=== PATIENT | male | born 1940 | race Caucasian/White ===

== ENCOUNTER → 2016-04-29 | Outpatient (CLI) | payer BC ==
[~2016-04-29] MED LIST: ATOR-54 PO; GABA300C19 PO; MULTTAB58 PO
[2016-04-29 11:12] LABS: BASO % 0.5 %; BASO ABS # 0.02 K/uL (0-0.2); COMPLETE YES; EOS % 1.4 %; HEMATOCRIT 42.8 % (42-52); IG% 0.2 %; LYMPH % 28.7 %; LYMPH ABS # 1.23 K/uL (1.2-3.4); MEAN CELL VOLUME 87.5 fL (80-100); MEAN CORPUSCULAR HEMOGLOBIN 29.2 pg (25-34); MEAN CORPUSCULAR HGB CONC 33.4 g/dl (32-36); MEAN PLATELET VOLUME 10.2 fL (7.4-10.4); MONO % 11.2 %; PLATELET COUNT 221 K/uL (130-400); RED BLOOD COUNT 4.89 M/uL (4.7-6.1); WHITE BLOOD COUNT 4.28 K/uL (4.8-10.8)
[2016-04-29 11:20] LABS: ESTIMATED AVERAGE GLUCOSE 134 mg/dl; HA1C FLAG Normal (Normal)
[2016-04-29 11:24] LABS: ALT/SGPT 46 U/L (12-78); BLOOD UREA NITROGEN 15 mg/dl (7-18); BUN/CREATININE RATIO 18.8 (10-20); CALCIUM 9.1 mg/dl (8.5-10.1); CARBON DIOXIDE 27 mmol/L (21-32); CHLORIDE 104 mmol/L (98-107); CHOLESTEROL 161 mg/dl (0-200); CREATININE 0.78 mg/dl (0.60-1.40); GLUCOSE 120 mg/dl (70-99); POTASSIUM 4.5 mmol/L (3.5-5.1); SODIUM 139 mmol/L (136-145)
[2016-04-29 11:34] LABS: ALB/GLOB RATIO 1.1 (0.9-2); ALKALINE PHOSPHATASE 65 U/L (45-117); AST/SGOT 24 U/L (15-37); CHOLESTEROL/HDL RATIO 3.5; HDL CHOLESTEROL 46 mg/dl; TRIGLYCERIDES 531 mg/dl (0-150)
--- NOTE | 2016-05-07 07:23 | CODING QUERY MEDICAL NECESSITY ---
SUPPORTING DIAGNOSIS NEEDED A supporting diagnosis is required for the test/procedure performed on this patient in order for us to be reimbursed by the patient's insurance. Please provide a supporting diagnosis for the following test/procedure listed below next to the test name along with your signature. *If there is no additional diagnosis for this patient that would support the following test/procedure please document that below next to the test/procedure. Test(s)/Procedure(s) that require a supporting diagnosis: * VITAMIN B-12 LEVEL DIAGNOSIS: * DOS: 04/29/16 Provider Signature: Date: Thank you Millie Peck Health Information Management Once completed, please kindly fax back to [phone] For questions please call [phone]
== END | disposition home or self-care (01) ==
LOC: C.LABBC 07:02
PROVIDERS: ATTEND Internal Medicine Cardiovascular Disease
DX: E11.9 Type 2 diabetes mellitus without complications (principal); G62.9 Polyneuropathy, unspecified; M19.90 Unspecified osteoarthritis, unspecified site; D64.9 Anemia, unspecified; E78.5 Hyperlipidemia, unspecified; M81.0 Age-related osteoporosis without current pathological fracture; I34.0 Nonrheumatic mitral (valve) insufficiency; R00.2 Palpitations; R06.02 Shortness of breath; R07.89 Other chest pain; I49.3 Ventricular premature depolarization

== ENCOUNTER → 2016-07-07 | Outpatient (CLI) | payer BC ==
[~2016-07-07] MED LIST changes: +GABA-1218 PO; -GABA300C19 PO
--- NOTE | 2016-07-07 12:07 | DIAGNOSTIC IMAGING REPORT ---
CT OF THE CHEST WITHOUT IV CONTRAST CLINICAL HISTORY: Solitary pulmonary nodule. COMPARISON STUDY: Chest CT March 29, 2012 and September 04, 2014 CT DOSE: 504.86 mGy.cm TECHNIQUE: Axial images of the chest were obtained without IV contrast. Images were reviewed in the axial, sagittal, and coronal planes. IV contrast was not administered for this examination. FINDINGS: No enlarged thoracic lymph nodes are present. The size of the heart is mildly increased. There is moderate coronary artery calcification. Central airways are patent. There is no consolidation to suggest pneumonia. A 2.7 x 2.1 cm nodular opacity within the medial basilar segment of the right lower lobe is similar to chest CT of March 29, 2012. Multiple additional tiny pulmonary nodules are unchanged since initial CT as well. The bony thorax is unremarkable. There are small bilateral renal stones. There is a cyst within the upper pole the right kidney. There are small gallstones within the gallbladder. A few hypodense hepatic lesions are suboptimally assessed on this unenhanced exam but unchanged since prior studies. These are considered benign. IMPRESSION: No significant change in the 2.7 x 2.1 cm nodular opacity within the medial basilar segment of the right lower lobe since initial CT of March 29, 2012. Stability over this time period is indicative of a benign etiology. Electronically signed by: Gasper Willoughby M.D. 07/07/2016 12:05 PM Dictated Date/Time: 07/07/2016 11:52 AM
== END | disposition home or self-care (01) ==
LOC: C.CTS 11:07
PROVIDERS: ATTEND Internal Medicine Geriatric Medicine
DX: R91.1 Solitary pulmonary nodule (principal)

== ENCOUNTER → 2016-12-02 | Outpatient (CLI) | payer BC ==
[~2016-12-02] MED LIST changes: -GABA-1218 PO; +GABA300C19 PO
[2016-12-02 11:01] LABS: BASO % 0.8 %; BASO ABS # 0.03 K/uL (0-0.2); COMPLETE YES; EOS % 1.3 %; HEMATOCRIT 40.7 % (42-52); LYMPH % 37.6 %; LYMPH ABS # 1.48 K/uL (1.2-3.4); MEAN CELL VOLUME 88.1 fL (80-100); MEAN CORPUSCULAR HEMOGLOBIN 30.1 pg (25-34); MEAN CORPUSCULAR HGB CONC 34.2 g/dl (32-36); MEAN PLATELET VOLUME 9.8 fL (7.4-10.4); MONO % 9.4 %; NEUT % 50.9 %; PLATELET COUNT 174 K/uL (130-400); RED BLOOD COUNT 4.62 M/uL (4.7-6.1); WHITE BLOOD COUNT 3.94 K/uL (4.8-10.8)
[2016-12-02 11:26] LABS: BLOOD UREA NITROGEN 21 mg/dl (7-18); BUN/CREATININE RATIO 27.7 (10-20); CALCIUM 8.8 mg/dl (8.5-10.1); CARBON DIOXIDE 26 mmol/L (21-32); CHLORIDE 108 mmol/L (98-107); CREATININE 0.76 mg/dl (0.60-1.40); GLUCOSE 110 mg/dl (70-99); POTASSIUM 4.1 mmol/L (3.5-5.1); SODIUM 141 mmol/L (136-145)
[2016-12-02 11:32] LABS: CHOLESTEROL 136 mg/dl (0-200); CHOLESTEROL/HDL RATIO 2.6; HDL CHOLESTEROL 53 mg/dl; TRIGLYCERIDES 505 mg/dl (0-150)
== END | disposition home or self-care (01) ==
LOC: C.LABBC 07:05
PROVIDERS: ATTEND Internal Medicine Geriatric Medicine
DX: E11.9 Type 2 diabetes mellitus without complications (principal); D64.9 Anemia, unspecified; E78.5 Hyperlipidemia, unspecified; M81.0 Age-related osteoporosis without current pathological fracture

== ENCOUNTER → 2017-05-18 | Outpatient (CLI) | payer BC ==
[~2017-05-18] MED LIST changes: +GABA-1218 PO; -GABA300C19 PO
[2017-05-18 11:03] LABS: BASO % 0.4 %; BASO ABS # 0.02 K/uL (0-0.2); EOS % 1.2 %; EOS ABS # 0.06 K/uL (0-0.5); HEMATOCRIT 42.5 % (42-52); HEMOGLOBIN 14.1 g/dL (14.0-18.0); IG# 0.01 K/uL (0.00-0.02); LYMPH % 31.7 %; LYMPH ABS # 1.64 K/uL (1.2-3.4); MEAN CELL VOLUME 89.9 fL (80-100); MEAN CORPUSCULAR HEMOGLOBIN 29.8 pg (25-34); MEAN CORPUSCULAR HGB CONC 33.2 g/dl (32-36); MEAN PLATELET VOLUME 9.9 fL (7.4-10.4); MONO % 8.9 %; MONO ABS # 0.46 K/uL (0.11-0.59); NEUT % 57.6 %; NEUT ABS # 2.99 K/uL (1.4-6.5); PLATELET COUNT 213 K/uL (130-400); RED CELL DISTRIBUTION WIDTH CV 12.7 % (11.5-14.5); WHITE BLOOD COUNT 5.18 K/uL (4.8-10.8)
[2017-05-18 11:27] LABS: ALBUMIN 3.5 gm/dl (3.4-5.0); ALT/SGPT 47 U/L (12-78); AST/SGOT 29 U/L (15-37); BLOOD UREA NITROGEN 14 mg/dl (7-18); CALCIUM 9.2 mg/dl (8.5-10.1); CARBON DIOXIDE 26 mmol/L (21-32); CHOLESTEROL 149 mg/dl (0-200); CREATININE 0.76 mg/dl (0.60-1.40); GLUCOSE 120 mg/dl (70-99); POTASSIUM 4.2 mmol/L (3.5-5.1); SODIUM 136 mmol/L (136-145)
[2017-05-18 11:40] LABS: ALKALINE PHOSPHATASE 70 U/L (45-117); TOTAL PROTEIN 6.7 gm/dl (6.4-8.2)
[2017-05-18 12:00] LABS: HEMOGLOBIN A1C 6.2 % (4.5-5.6)
== END | disposition home or self-care (01) ==
LOC: C.LABBC 07:03
PROVIDERS: ATTEND Internal Medicine Geriatric Medicine
DX: E11.9 Type 2 diabetes mellitus without complications (principal); D64.9 Anemia, unspecified; E78.5 Hyperlipidemia, unspecified; M81.0 Age-related osteoporosis without current pathological fracture

== ENCOUNTER 2018-10-06 05:53 | Inpatient (IN) ==
--- NOTE | 2018-09-13 09:55 | PAT Medication Instructions ---
Medication Instructions Date of Service September 13, 2018 Home Medications acetaminophen 1,350 mg PO NEEDED ascorbic acid (vitamin C) [Vitamin C] 250 mg PO QAM atorvastatin 20 mg PO HS cholecalciferol (vitamin D3) [Vitamin D3] 5,000 unit PO QAM famotidine-Ca carb-mag hydrox [Dual Action Complete] 1 tab PO QAM gabapentin 300 mg PO QAM gabapentin 600 mg PO HS omega 6-ufl-ejv-fish oil [Fish Oil] 2 cap PO QAM ranitidine HCl [Zantac] 150 mg PO DAILY NEEDED STOP taking 2 weeks before surgery omega 5-dka-sek-fish oil [Fish Oil] 2 cap PO QAM DO NOT take the morning of surgery ascorbic acid (vitamin C) [Vitamin C] 250 mg PO QAM cholecalciferol (vitamin D3) [Vitamin D3] 5,000 unit PO QAM famotidine-Ca carb-mag hydrox [Dual Action Complete] 1 tab PO QAM Take morning of surgery With a small sip of water, OTHERWISE NOTHING TO EAT OR DRINK AFTER MIDNIGHT: acetaminophen 1,350 mg PO NEEDED (if needed; stop 4 hours before surgery) gabapentin 300 mg PO QAM ranitidine HCl [Zantac] 150 mg PO DAILY NEEDED (if needed) Take evening before surgery acetaminophen 1,350 mg PO NEEDED (if needed) atorvastatin 20 mg PO HS gabapentin 600 mg PO HS Other Notes If you have any questions please call us at [phone] or [phone] or [phone] or [phone]
--- NOTE | 2018-09-13 10:10 | Anesthesiology Consultation ---
Date of Service September 13, 2018 Assessment & Plan (1) Encounter for pre-operative examination: - No previous anesthesia records re: intubation. Chart Review Chart Review: Acceptable Risk for Surgery and Patient seen in Pre Admission Testing Consults Requested medical & cardiac (Jess Malcolm & Dr. Michael) Patient was seen by PCP's office on 09/07/18 for preoperative evaluation. Per note from that visit, "Using the revised cardiac index, he is at low risk for adverse outcomes with non-cardiac surgery. He is acceptable risk for surgery." Patient was last seen by Cardiology on 05/31/18 and at that visit they discussed his upcoming knee replacement surgery and a preoperative cardiac assessment surgery was done. Per note from that visit, "At this point time, he appears to be low cardiac risk for knee surgery. He has chronic but stable dyspnea with exertion and has no CAD based on his last cardiac catheterization." Teaching & Discussion Pre-Anesthesia Teaching/Discussion Notes: Instructed NPO after midnight before surgery, except medications with 15 cc of water. Medication instructions provided according to the PAT guidelines. History Surgery Operation Date: 10/06/18 08:50 Proposed Procedures p Left Total Knee Arthroplasty - Chad Chilel MD Height/Weight Height: 5 ft 10 in Weight: 87.8 kg Allergies Allergy/AdvReac Type Severity Reaction Status Date / Time oxycodone AdvReac Mild Vomiting Verified 09/07/18 15:14 omeprazole AdvReac Unknown NAUSEA Verified 09/07/18 15:14 pantoprazole AdvReac Unknown NAUSEA Verified 09/07/18 15:14 alendronate sodium AdvReac GI UPSET Verified 09/07/18 15:14 [From Fosamax] metformin AdvReac GI UPSET Verified 09/07/18 15:14 Medications Home Medications Medication Instructions Recorded Confirmed Last Taken acetaminophen 1,350 mg PO DAILY PRN 09/07/18 09/07/18 Unknown ascorbic acid (vitamin C) [Vitamin 250 mg PO QAM 09/07/18 09/07/18 Unknown C] atorvastatin 20 mg PO HS 09/07/18 09/07/18 Unknown cholecalciferol (vitamin D3) 5,000 unit PO QAM 09/07/18 09/07/18 Unknown [Vitamin D3] famotidine-Ca carb-mag hydrox 1 tab PO QAM 09/07/18 09/07/18 Unknown [Dual Action Complete] gabapentin 300 mg PO QAM 09/07/18 09/07/18 Unknown gabapentin 600 mg PO HS 09/07/18 09/07/18 Unknown omega 5-hoy-jyt-fish oil [Fish Oil] 2 cap PO QAM 09/07/18 09/07/18 Unknown ranitidine HCl [Zantac] 150 mg PO DAILY PRN 09/07/18 09/07/18 Unknown Past Medical History Medical History Aortic atherosclerosis (Acute) Chronic osteoarthritis (Acute) Coronary artery calcification (Acute) Left bundle-branch block (Acute) Mitral regurgitation (Acute) Osteoporosis (Acute) Peripheral neuropathy (Acute) tingling in feet - occurs more in evening Premature ventricular contractions (Acute) Solitary pulmonary nodule (Acute) History of anemia History of duodenal ulcer Type 2 diabetes mellitus Exercise / Class Metabolic Activity II 4-5 Yardwork/Stairs/Walk up hill (Able to climb stairs slowly. Climbs ladder. Denies CP. Does occasionally get SOB. Had negative workup in [place] (2016).) Past Family History Family History Father Heart disease Diabetes Mother Stroke syndrome Brother Heart disease Diabetes Lung cancer Past Surgical History Surgical History H/O umbilical hernia repair History of cardiac cath one at [place] 1994 and one at [facility] 03/2012 History of left hip replacement 2011 Hx of breast surgery left x2 and r x1 for "lump" Hx of cataract extraction both eyes 2016 Past Anesthesia History No Hx of Anesthesia Complications and No Family Hx of Anesthesia Complications History of PONV No Hx of PONV and No Hx of Motion Sickness Social History Smoking Status: Former smoker Do You Dip or Chew Tobacco: No Smoking End Date: 50 YR AGO Hx Alcohol Use: No Hx Substance Use: No Review of Systems Patient denies chest pain, dyspnea on exertion, cough, wheezing, palpitations. +Does get SOB. Had negative workup in [place] (2016). +Joint Pain (Knees, Fingers) +Acid Reflux (controlled with prn zantac) +Heart Palpitation (occasionally with PVCs) Physical Exam Vital Signs BP: 122/59 P: 55 R: 16 T: 97.7 SPO2: 98% on RA ENMT Mouth: + dentures (Full upper and lower sets) and + edentulous Thyromental Distance: > or= 3.5 Finger Breadths (3.5) Mallampati Class: II Neck normal visual inspection, trachea midline and + limited neck extension Respiratory normal respiratory effort Auscultation: lungs clear to auscultation bilaterally Cardiovascular Rate/Rhythm: regular rate and regular rhythm Heart Sounds: + murmur (2/6) Vessels: no carotid bruit Neurologic moves all extremities Psychiatric Orientation: alert and oriented x 3 Testing Laboratory Results 09/13/18 10:23 09/13/18 10:25 PT 11.0 Seconds (9.0-12.0) 09/13/18 10: INR 1.1 (0.9-1.1) 09/13/18 10:23 APTT 25.9 Seconds (21.0-31.0) 09/13/18 10:23 Hemoglobin A1c 6.2 % (4.5-5.6) H 09/13/18 10:23 Urine Color Yellow 09/13/18 10:23 Urine Appearance Clear (Clear) 09/13/18 10:23 Urine pH 6.0 (4.5-7.5) 09/13/18 10:23 Ur Specific [place] 1.021 (1.000-1.030) 09/13/18 10:23 Urine Protein Negative (Negative) 09/13/18 10:23 Urine Glucose (UA) Negative (Negative) 09/13/18 10:23 Urine Ketones Negative (Negative) 09/13/18 10:23 Urine Nitrite Negative (Negative) 09/13/18 10:23 Ur Leukocyte Esterase Negative (Negative) 09/13/18 10:23 Blood Type AB Positive 09/13/18 10:23 Antibody Screen NEGATIVE 09/13/18 10:23 Electrocardiogram Date: 09/13/18 Sinus rhythm @ 65bpm with 1st degree AV block with occasional PVCs Left bundle branch block When compared with ECG of 10/20/13, Questionable change in QRS axis T wave inversion is less evident in lateral leads Chest X-Ray Date: 05/31/18 FINDINGS: No pneumothorax. Emphysema persists. Bibasilar linear densities are noted. The upper lung zones remain clear. The heart is normal in size. Elevation of the right hemidiaphragm with mild volume loss within the right hemithorax. This is also unchanged. IMPRESSION: No significant change compared to the prior study. No acute process. Bibasilar densities favor scarring or atelectasis. Echocardiogram Date: 05/15/17 EF: 50-55% Normal left ventricular size with low-normal systolic function No regional wall motion abnormalities Septal motion consistent with bundle-branch block Mild concentric left ventricular hypertrophy Type I diastolic dysfunction Mildly dilated right ventricle with normal systolic function Mitral valve prolapse with kowq-ao-nheqcjir regurgitation Normal estimated right ventricular systolic pressure; 27 mmHg Compared to prior study on 05/05/14, there is now less ventricular ectopy.
[2018-09-13 11:18] LABS: Basophils # (auto) 0.02 K/uL (0-0.2); Basophils % (auto) 0.3 %; Eosinophils # (auto) 0.05 K/uL (0-0.5); Eosinophils % (auto) 0.9 %; Hematocrit (blood only) 42.3 % (42-52); Lymphocytes # (auto) 1.22 K/uL (1.2-3.4); Lymphocytes % (auto) 20.9 %; Mean Corpuscular Hgb Conc 33.1 g/dL (32-36); Mean Corpuscular Volume 91.2 fL (80-100); Mean Platelet Volume 9.9 fL (7.4-10.4); Monocytes # (auto) 0.36 K/uL (0.11-0.59); Monocytes % (auto) 6.2 %; Neutrophils # (auto) 4.19 K/uL (1.4-6.5); Neutrophils % (auto) 71.7 %; Platelet Count 166 K/uL (130-400); RDW Coefficient of Variation 12.6 % (11.5-14.5); Red Blood Count 4.64 M/uL (4.7-6.1); White Blood Count 5.84 K/uL (4.8-10.8)
[2018-09-13 11:29] LABS: Appearance Urine Clear (Clear); Bilirubin Urine Negative (Negative); Blood Urine Negative (Negative); Color Urine Yellow; Glucose Urine UA Negative (Negative); Ketones Urine Negative (Negative); Leukocyte Esterase Urine Negative (Negative); Nitrite Urine Negative (Negative); Protein Urine Negative (Negative); Specific Gravity Urine 1.021 (1.000-1.030); Urobilinogen Urine Negative (Negative)
[2018-09-13 11:31] LABS: INR 1.1 (0.9-1.1); Partial Thromboplastin Time 25.9 Seconds (21.0-31.0)
[2018-09-13 12:21] LABS: Estimated Average Glucose 131 mg/dl; Hemoglobin A1C 6.2 % (4.5-5.6)
[2018-09-13 12:41] LABS: BUN Creatinine Ratio 21.1 (10-20); Calcium 9.1 mg/dl (8.5-10.1); Creatinine Clr Calc Pharmacy 91.8 ml/min; Est GFR (African American) 102.4; Est GFR (Non-African American) 88.3; Potassium 3.9 mmol/L (3.5-5.1)
--- NOTE | 2018-09-15 15:46 | History and Physical Report ---
DATE OF ADMISSION: 10/06/2018 DATE OF SURGERY: 10/06/2018. CHIEF COMPLAINT: Left knee pain. HISTORY OF PRESENT ILLNESS: This 78-year-old white male presents to the office with his son with complaints of left knee pain. He has a longstanding history of left knee pain. It has been present for several years. It has become worse with time. He has tried activity modification, oral pain medication, and viscosupplementation injections without lasting improvement. He elects to proceed with left total knee arthroplasty in hopes of alleviating his pain. Pain is affecting his ADLs. It is worse with weightbearing and ambulation. He has difficulty pushing the clutch in on his jeep. He is frustrated. No new injury. No catching or locking. No buckling. Pain is worse with flexion. Occasional night pain. Preoperative imaging has been obtained. PAST MEDICAL HISTORY: Significant for heart murmur, elevated cholesterol, palpitations, osteoarthritis, low back pain, and obesity. Also, history of noninsulin-dependent diabetes and seborrheic keratosis. PAST SURGICAL HISTORY: Herniorrhaphy, breast lump excision, total hip replacement, cardiac catheterization March 2012, endoscopy 2012 x2, orchiectomy 1967. FAMILY HISTORY: Significant for diabetes, heart disease, lung cancer, stroke, and history of WI in his brother and father. SOCIAL HISTORY: The patient is retired. No tobacco use, no ETOH use. . ALLERGIES: KNOWN ALLERGY TO FOSAMAX, PERCOCET, PRILOSEC, AND PROTONIX. PERCOCET GAVE HIM NAUSEA AND VOMITING. CURRENT MEDICATIONS: Atorvastatin 20 mg p.o. at bedtime, calcium daily, fish oil daily, gabapentin 300 mg p.o. t.i.d., Tylenol 500 mg q. 6 hours p.r.n., vitamin C daily, vitamin D daily, Zantac 150 mg p.o. daily. REVIEW OF SYSTEMS: A total of 10 systems are reviewed and are significant only for above-stated conditions. PHYSICAL EXAMINATION: GENERAL: Well-developed, well-nourished elderly white male in no acute distress. Sitting on a bed. Alert and oriented. SKIN: Warm and dry with fair turgor. No rashes or lesions. No ecchymosis or erythema. No intraarticular effusion. HEENT: Normocephalic, atraumatic. Eyes PERRLA, EOMI. Nares patent bilaterally without turbinate enlargement. Oropharynx without erythema or exudate. No lesions noted. Uvula midline. Oral mucosa moist. Upper and lower denture plates are noted. HEART: Irregular rhythm, 2/6 systolic ejection murmur noted. No gallops or rubs. LUNGS: Clear to auscultation bilaterally. No crackles, rhonchi or wheezing. Good air movement. ABDOMEN: Bowel sounds present x4, soft, nontender. No organomegaly. No masses. No significant obesity. MUSCULOSKELETAL: Left knee evaluation reveals no intra-articular effusion. No redness or warmth. Significant visible arthritic changes. He lacks approximately 5 degrees of terminal extension. Flexion to 95 degrees. Strength is 5/5 with fairly good quad tone. Stable collateral ligaments. No focal discomfort with palpation over the popliteal fossa. He does have peripatellar discomfort with palpation as well as significant medial joint line pain with palpation. No palpable crepitus with motion. No defect in the patellar tendon or quadriceps tendon. Ambulatory with a slightly antalgic gait. NEUROLOGIC: Cranial nerves II through XII are intact. Gross sensation is intact across the lower extremities by soft touch. Peripheral pulses are 2+. DATA: Radiographic imaging previously obtained shows end-stage DJD of the left knee. Periarticular osteophytes, subchondral sclerosis, and joint space narrowing are all present. IMPRESSION: Left knee end-stage degenerative joint disease. PLAN: Postoperative prescriptions for [place] 5 mg and Coumadin 2 mg will be provided at discharge from the hospital. Anticipate discharge to home with home health services. He already has a raised toilet seat. Prescription was provided for a walker. 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 Informed written consent has been obtained to proceed with left total knee arthroplasty. [facility]
[2018-10-06] MEDS ORDERED: ROPIVACAINE 0.5% HCL/PF 150 MG, BUPIVACAINE 0.5% MPF 30 ML, EPINEPHrine 0.15 MG, Ketoro... INFIL SCH (06:00)
[2018-10-06] MEDS ORDERED: TRANEXAMIC ACID 1,000 MG **IV Pre-op IV SCH (06:00)
[2018-10-06] MEDS ORDERED: CEFAZOLIN 2000MG 2,000 MG/15 ML SYR IV SCH (06:00)
[2018-10-06] MEDS ORDERED: LR 60ML/HR IV SCH (06:00)
[2018-10-06] MEDS ORDERED: LR 500ML BOLUS, THEN 15ML/HR IV SCH (06:00)
[2018-10-06] MEDS ORDERED: ROPIVACAINE 0.5% 5 MG/ML 30 ML VIAL ONE (06:39)
[2018-10-06] MEDS ORDERED: BUPIVACAINE 0.5 % 5 MG/1 ML PF 10ML VIAL ONE (06:39)
--- NOTE | 2018-10-06 06:39 | History & Physical Bridge Note ---
Date of Service October 06, 2018 History & Physical Bridge Note I have examined the patient, reviewed the History & Physical and in the interval since the performance of the History & Physical I have noted the following changes of clinical significance: consent verified.no changes noted
[2018-10-06] MEDS ORDERED: MIDAZOLAM HCL 1 MG/ML 2ML VIAL ONE (07:44)
[2018-10-06] MEDS ORDERED: fentaNYL citrate 100 MCG/2 ML VIAL ONE (07:44)
[2018-10-06] MEDS ORDERED: ATROPINE SULFATE 0.1 MG/ML 10ML SYR IV PRN (08:04)
[2018-10-06] MEDS ORDERED: ePHEDrine sulfate 50 MG/ML AMP IV PRN (08:04)
[2018-10-06] MEDS ORDERED: fentaNYL citrate 100 MCG/2 ML VIAL IV PRN (08:04)
[2018-10-06] MEDS ORDERED: ONDANSETRON INJ 2 MG/ML 2 ML VIAL IV PRN ×2 (08:04→11:33)
[2018-10-06] MEDS ORDERED: ORTHO JOINT ANESTHETIC ONE (08:34)
[2018-10-06] MEDS ORDERED: PROPOFOL IV EMULSION 10 MG/ML 20 ML VIAL IV ONE ×2 (09:46→10:28)
[2018-10-06] MEDS ORDERED: LIDOCAINE HCL 2% 2 ML VIAL/AMP(20MG/ML) INFIL ONE (09:46)
[2018-10-06] MEDS ORDERED: PHENYLEPHRINE 100MCG/ML 5ML SYR ONE (09:46)
--- NOTE | 2018-10-06 10:32 | Operative Report ---
Post Operative Report Pre & Post Diagnosis Operation Date: 10/06/18 08:50 Pre-Op Diagnosis: Left Knee End-Stage Degenerative Joint Disease Post-Op Diagnosis: Left Knee End-Stage Degenerative Joint Disease Procedure Operation Date: 10/06/18 08:50 Actual Procedures p Left Total Knee Arthroplasty, Cemented(Left) - Chad Chilel MD Surgeon JEFF Chilel MD [employer] Security Assessment sesaint joseph berea PAC Estimated Blood Loss 50 Findings Consistent with Post-Op Diagnosis Specimens see operative report Drains none Complications none Disposition Accompanied Patient To Recovery: Yes Disposition: Recovery Room Indications This 78-year-old white male presented to the office with complaints of intractable left knee pain. He had tried conservative care measures including activity modification, oral pain medication, and injection therapy, without lasting improvement. He elected to proceed with surgical intervention after being educated about potential risks and outcomes. Preoperative imaging was obtained. Description of Procedure Patient was administered a spinal and regional anesthetic, and then taken to the operating room where he was given sedation. He was prepped and draped in the usual sterile fashion. Please see Dr. Chilel's operative report for specifics of the procedure. I was present for the entire case from initial patient positioning through final wound closure. Assistance was provided in tissue retraction, hemostasis, trial implant placement, final implant placement, and final wound closure. Patient was taken to the recovery room in satisfactory condition. I attest to the content of the Intraoperative Record and any orders documented therein. Any exceptions are noted below.
--- NOTE | 2018-10-06 10:35 | Operative Report ---
Post Operative Report Pre & Post Diagnosis Operation Date: 10/06/18 08:50 Pre-Op Diagnosis: Left Knee End-Stage Degenerative Joint Disease Post-Op Diagnosis: Left Knee End-Stage Degenerative Joint Disease Procedure Operation Date: 10/06/18 08:50 Actual Procedures p Left Total Knee Arthroplasty, Cemented(Left) - Chad Chilel MD Surgeon Chad Chilel MD Scroll Assembler Sarah Bustamante Estimated Blood Loss 50 Findings Consistent with Post-Op Diagnosis Specimens Please see the main op report Drains None Complications none Disposition Accompanied Patient To Recovery: Yes Disposition: Recovery Room Indications 78 years old pleasant gentleman with intractable left knee pain who failed all the conservative treatment now underwent left total knee arthroplasty Description of Procedure After identification of the site and procedure to name the patient has been transferred to the main operating room. He was given regional anesthesia. The e ntire left lower extremity was prepped and draped in the standard fashion. Please refer to the main op notes by Dr. Chilel for specific details. I was present throughout the surgery and assisted in closure as well as dressing. The patient is transferred to PACU in a safe condition. I attest to the content of the Intraoperative Record and any orders documented therein. Any exceptions are noted below.
--- NOTE | 2018-10-06 10:50 | Operative Report ---
DATE OF OPERATION: 10/06/2018 SURGEON: Chad Chilel MD STOPPER MAKER: Daniella [employer] fellow and terry. PREOPERATIVE DIAGNOSIS: Osteoarthritis, patellofemoral joint, left knee. POSTOPERATIVE DIAGNOSIS: Osteoarthritis, patellofemoral joint, left knee. OPERATION PERFORMED: Cemented left total knee replacement. PERIOPERATIVE SITUATION: Medically cleared male with known patellofemoral disease. At this point in time, has failed conservative management over multiple years despite having x-rays that did not reveal marked changes in the tibiofemoral component. His patellofemoral joint is quite painful. He gets intermittent effusions and cannot do any type of incline. He is frustrated and wants to proceed with surgical treatment. SUMMARY OF IMPLANTS: Four narrow left femur, posterior cruciate substituting 4 mobile bearing tray, rotating platform, oval dome 3 peg patella size 41, tibial insert size 4, 10 mm thick posterior cruciate substituting, 2 bags of Pal[place]os G cement. Bone pathology pending. ESTIMATED BLOOD LOSS: 50 mL. OPERATION: The patient was properly identified, site verified, consent verified. Antibiotics confirmed as being given. The left lower extremity was prepped and draped in usual routine fashion. There were no significant contractures. Patella is main disease as patellofemoral. A midline incision made. Parapatellar arthrotomy performed. Synovectomy which was quite exuberant was released. There was grade 4 disease in the patellofemoral joint. It was roughly two-thirds of the whole patellofemoral joint. The medial and lateral tibial femoral compartments are relatively healthy. There was only grade 1 changes there. The menisci were resected. The centering hole of the femur identified, made and then the cruciates resected, tibia subluxated. Posterior horns of the menisci were resected. Care taken to coagulate the inferolateral genicular artery laterally. The femur was then resected 12 mm. The tibia then resected 4 mm, the extension gap was excellent. The femur was sized to a 4 narrow as appropriate cutting block applied and the anterior, posterior condylar and chamfer cuts made and the flexion gap was checked. It was slightly tight laterally, so posterior capsule released and then it was excellent. The box cut then made and the size 4 narrow fit well. Baseplate size 4 was then placed in the appropriate rotation and then broached and reamed. Once this was completed, the 10 mm spacer seated and the knee reduced well, it was stable in mid range flexion, full extension, full flexion. The patella tracked well. Patella was then resected leaving about 15 mm. Seating holes made for the size 41 patella and this tracked well. It should be mentioned that the Orthomix was injected posteriorly prior to inserting the implants and then once all the implants in the incisional area and the muscular area anteriorly was then all injected. After the trials were removed and irrigated with Betadine and Pulsavac, the permanents were cemented into position and sequentially tibia, femur and patella in that order. After 12 minutes, the tourniquet deflated. Minor bleeding points controlled with electrocautery, after 14 minutes, the knee flexed, the trial spacer removed. No major bleeding or cement removal required. Estimated blood loss again was 50 mL. Permanent liner was then seated. The knee reduced and closed with #2 Vicryl in about 60 degrees of flexion, 2-0 Vicryl and stainless steel clips for skin. Appropriate dressing applied. The patient transferred to recovery room in satisfactory condition having tolerated the procedure well. DVT prophylaxis with Coumadin. I attest to the content of the Intraoperative Record and any orders documented therein. Any exceptions are noted below. TERESITAD
--- NOTE | 2018-10-06 11:13 | XRay Report ---
TWO VIEWS LEFT KNEE CLINICAL HISTORY: Postoperative examination. FINDINGS: AP and crosstable lateral portable views of the left knee are obtained. A left knee arthrop lasty is in near anatomic alignment. There has been undersurface remodeling of the patella. No acute fracture is seen. There are expected postoperative changes around the knee including skin clips, soft tissue edema, and subcutaneous gas. IMPRESSION: Expected postoperative changes status post left knee arthroplasty. No acute fracture is s een. Electronically signed by: Sebastian Sibley M.D. 10/06/2018 11:12 AM
[2018-10-06] MEDS ORDERED: ALUMINUM/MAGNESIUM SUSP 30 ML UDC PO PRN (11:33)
[2018-10-06] MEDS ORDERED: HYDROmorphone INJ 0.5 MG/0.5 ML SYR IV PRN (11:33)
[2018-10-06] MEDS ORDERED: NALOXONE HCL 0.4 MG/1 ML VIAL/CARP IV PRN (11:33)
[2018-10-06] MEDS ORDERED: TAMSULOSIN HCL 0.4 MG CAP PO PRN (11:33)
[2018-10-06] MEDS ORDERED: BISACODYL 10 MG SUPP PR PRN (11:33)
[2018-10-06] MEDS ORDERED: MAGNESIUM HYDROXIDE SUSP 30 ML UDC PO PRN (11:33)
[2018-10-06] MEDS ORDERED: OXYCODONE HCL IR 5 MG TAB (IMMEDIATE RELEASE) PO PRN (11:33)
[2018-10-06] MEDS ORDERED: DiphenhydrAMINE HCL 50 MG/ML VIAL IV PRN (11:33)
[2018-10-06] MEDS ORDERED: METOCLOPRAMIDE HCL INJ 5 MG/ML 2 ML VIAL IV PRN (11:33)
[2018-10-06] MEDS ORDERED: TRAMADOL HCL 50 MG TABLET PO PRN (11:42)
--- NOTE | 2018-10-06 12:17 | Anesthesiology Progress Note ---
Date of Service October 06, 2018 Anesthesia Post Procedure Vital Signs Vital Signs: Temp Pulse Pulse Pulse Resp BP BP 10/06/18 11:33 61 16 100/59 L 10/06/18 11:15 36.6 C 58 L 16 99/58 L 10/06/18 10:55 36.7 C 10/06/18 10:50 67 12 101/49 L 10/06/18 10:46 62 15 101/54 L 10/06/18 10:45 65 23 10/06/18 10:42 61 17 10/06/18 10:41 64 19 92/67 L 10/06/18 10:40 66 14 10/06/18 10:35 63 23 93/58 L 10/06/18 10:32 66 20 85/56 L 10/06/18 10:30 65 18 10/06/18 10:26 65 17 10/06/18 10:25 36.2 C L 63 60 12 106/43 L 106/43 L 10/06/18 06:32 36.8 C 69 20 108/74 Pulse Ox 10/06/18 11:33 96 10/06/18 11:15 58 L 10/06/18 10:55 95 10/06/18 10:50 94 10/06/18 10:46 97 10/06/18 10:45 96 10/06/18 10:42 92 10/06/18 10:41 94 10/06/18 10:40 95 10/06/18 10:35 95 10/06/18 10:32 98 10/06/18 10:30 96 10/06/18 10:26 98 10/06/18 10:25 97 10/06/18 06:32 93 Pain Intensity Left Knee: Pain Intensity: 0 Transfer of Care Handoff Completed per policy Notes Mental Status: alert / awake / arousable and participated in evaluation Patient Amnestic to Procedure: Yes Nausea / Vomiting: adequately controlled Pain: adequately controlled Airway Patency, RR, SpO2: stable & adequate BP & HR: stable & adequate Hydration State: stable & adequate Neuraxial Anesthesia: was administered and sensory block is resolving Anesthetic Complications: no major complications apparent and Pt Satisfied with anesthetic care
[2018-10-06] MEDS: SODIUM CHLORIDE 0.9% 1000ML 1,000 ML IV SCH ×2 (13:22→21:46)
[2018-10-06] MEDS: ACETAMINOPHEN 500 MG TAB PO SCH ×2 (13:27→21:47)
[2018-10-06] MEDS: KETOROLAC TROMETHAMINE 15 MG/ML VIAL IV SCH ×2 (13:41→20:31)
--- NOTE | 2018-10-06 13:56 | Progress Note ---
DATE: 10/06/2018 Postop check status post left total knee replacement. The patient is sitting up in bed. He denies any groin pain. His hip is located. Neurovascular check distally is limited by the block, still numb and tingling bilateral lower extremities. Vital signs are stable. He is afebrile. Denies chest pain, shortness of breath, fever, chills, nausea, vomiting or headache. Postop x-rays look excellent. Case management as well. ASSESSMENT: Doing well. Continue with postop care pathway and once he has his lunch, we can Hep-Lock his IV, and once his spinal wears off, we can make him ambulatory.
[2018-10-06] MEDS ORDERED: ORTHO WARFARIN NOMOGRAM SCH (14:00)
[2018-10-06] MEDS ORDERED: WARFARIN SOD 5 MG TAB PO SCH (16:00)
[2018-10-06] MEDS ORDERED: TRANEXAMIC ACID 1,000 MG in 0.9 % SODIUM CHLORIDE 100 ML IV SCH (16:24)
[2018-10-06] MEDS: CEFAZOLIN 2000MG 2,000 MG/15 ML SYR IV SCH (17:31)
[2018-10-06] MEDS: ASCORBIC ACID 500 MG TAB PO SCH (17:32)
[2018-10-06] MEDS: FERROUS GLUCONATE 324 MG TAB PO SCH (17:33)
[2018-10-06] MEDS: INSULIN ASPART 100 UNITS/ML 3 ML PEN SC SCH ×2 (17:45→22:07)
[2018-10-06] MEDS: DOCUSATE SODIUM 100 MG CAP PO SCH (20:30)
[2018-10-06] MEDS ORDERED: GABAPENTIN 300 MG CAP PO SCH (21:00)
[2018-10-06] MEDS ORDERED: ATORVASTATIN 20 MG TAB PO SCH (21:00)
[2018-10-06] MEDS ORDERED: SENNA 8.6 MG TAB PO SCH (21:00)
[2018-10-07] MEDS: CEFAZOLIN 2000MG 2,000 MG/15 ML SYR IV SCH (01:56)
[2018-10-07] MEDS: KETOROLAC TROMETHAMINE 15 MG/ML VIAL IV SCH ×2 (01:57→08:23)
[2018-10-07] MEDS: ACETAMINOPHEN 500 MG TAB PO SCH (05:35)
--- NOTE | 2018-10-07 07:20 | Progress Note ---
DATE: 10/07/2018 Status post left total knee replacement, postop day #1. The patient is sitting up in his chair, comfortable. Wants to go home and wants to be discharged. He denies any chest pain, shortness of breath, fever, chills, nausea, vomiting or headache. Vital signs are stable. He is afebrile. On neurovascular check, femoral sciatic nerve is normal. Hip is located. He has been ambulatory in the potts. A.m. labs are pending. ASSESSMENT: Overall doing well status post left total knee replacement. The plan is for discharge to home today.
--- NOTE | 2018-10-07 07:32 | Discharge Summary ---
CHIEF COMPLAINT: Left knee pain. HISTORY OF PRESENT ILLNESS: The patient is admitted for elective left total knee replacement for patellofemoral arthropathy. At this point in time, his hospital course has been uneventful. He notes he has difficulty doing any type of flexion and extension because of anterior deep knee pain. PAST MEDICAL HISTORY: Remarkable for heart murmur, elevated cholesterol, palpitations, osteoarthritis, low back pain, and obesity. Also has a history of noninsulin-dependent diabetes and seborrheic keratosis. PAST SURGICAL HISTORY: Remarkable for herniorrhaphy, breast lump excision, total hip replacement on the left, cardiac catheterization, endoscopies, orchiectomy. FAMILY HISTORY: Remarkable for diabetes, heart disease, lung cancer, stroke, history of VT in his brother and father. SOCIAL HISTORY: Reveals he is retired. No tobacco or alcohol use. He is . ALLERGIES: FOSAMAX, PERCOCET, PRILOSEC, PROTONIX. PREADMISSION MEDICATIONS: Include atorvastatin, calcium supplements, fish oil, gabapentin, Tylenol, vitamin C, vitamin D, Zantac. He will continue all of his medications. Add p.r.n. tramadol and Tylenol for pain and Coumadin, to keep INR 1.8-2.2, pending INR results. REVIEW OF SYSTEMS: Reveals no chest pain, shortness of breath, fever, chills, nausea, vomiting or headache. Hospital course has been uneventful. He is ambulatory in the hallway. He is able to control his leg well. He is anxious to get home. ASSESSMENT: Doing well status post left total knee replacement. PLAN: The plan is to discharge to home today. He will use some Temple and some tramadol and Coumadin at home in addition to his previous medications. At this point in time, it looks like he will use the Temple primarily.
[2018-10-07] MEDS ORDERED: dexAMETHasone 10 MG in SYRINGE 0 ML IV SCH (08:00)
[2018-10-07 08:02] LABS: Hematocrit (blood only) 37.2 % (42-52); Hemoglobin 12.4 g/dL (14.0-18.0); Mean Corpuscular Hgb Conc 33.3 g/dL (32-36); Mean Corpuscular Volume 90.3 fL (80-100); Mean Platelet Volume 10.4 fL (7.4-10.4); Platelet Count 147 K/uL (130-400); RDW Coefficient of Variation 12.7 % (11.5-14.5); RDW Standard Deviation 41.7 fL (36.4-46.3); Red Blood Count 4.12 M/uL (4.7-6.1); White Blood Count 10.83 K/uL (4.8-10.8)
[2018-10-07 08:17] LABS: INR 1.1 (0.9-1.1); Prothrombin Time 11.5 Seconds (9.0-12.0)
[2018-10-07] MEDS: DOCUSATE SODIUM 100 MG CAP PO SCH (08:21)
[2018-10-07] MEDS: FERROUS GLUCONATE 324 MG TAB PO SCH (08:22)
[2018-10-07] MEDS: ASCORBIC ACID 500 MG TAB PO SCH (08:23)
[2018-10-07] MEDS: INSULIN ASPART 100 UNITS/ML 3 ML PEN SC SCH (08:26)
[2018-10-07 08:34] LABS: BUN Creatinine Ratio 25.3 (10-20); Calcium 8.7 mg/dl (8.5-10.1); Creatinine Clr Calc Pharmacy 84.9 ml/min; Est GFR (African American) 99.2; Est GFR (Non-African American) 85.6; Potassium 4.2 mmol/L (3.5-5.1)
[2018-10-07] MEDS ORDERED: ASCORBIC ACID 250 MG PO SCH (09:00)
[2018-10-07] MEDS ORDERED: MULTIVITAMIN TAB PO SCH (09:00)
[2018-10-07] MEDS ORDERED: OMEGA-3 (PURIFIED FISH OIL) 1 GM CAP PO SCH (09:00)
[2018-10-07] MEDS ORDERED: CHOLECALCIFEROL 1,000 UNITS TAB PO SCH (09:00)
[2018-10-07] MEDS ORDERED: GABAPENTIN 300 MG CAP PO SCH (09:00)
--- NOTE | 2018-10-07 09:35 | Anesthesiology Progress Note ---
Date of Service October 07, 2018 Anesthesia Post Procedure Vital Signs Vital Signs: Temp Pulse Pulse Pulse Resp BP BP 10/07/18 07:45 36.3 C L 54 L 16 99/58 L 10/07/18 07:00 36.3 C L 54 L 16 99/58 L 10/07/18 04:05 36.4 C L 53 L 16 10/06/18 23:35 36.5 C 52 L 18 10/06/18 19:23 36.5 C 49 L 17 99/59 L 10/06/18 15:38 36.4 C L 48 L 17 10/06/18 14:03 46 L 16 10/06/18 13:35 56 L 17 10/06/18 12:22 50 L 16 10/06/18 11:33 61 16 10/06/18 11:15 36.6 C 58 L 16 10/06/18 10:55 36.7 C 10/06/18 10:50 67 12 101/49 L 10/06/18 10:46 62 15 101/54 L 10/06/18 10:45 65 23 10/06/18 10:42 61 17 10/06/18 10:41 64 19 92/67 L 10/06/18 10:40 66 14 10/06/18 10:35 63 23 93/58 L 10/06/18 10:32 66 20 85/56 L 10/06/18 10:30 65 18 10/06/18 10:26 65 17 10/06/18 10:25 36.2 C L 63 60 12 106/43 L BP Pulse Ox 10/07/18 07:45 92 10/07/18 07:00 92 10/07/18 04:05 93/51 L 94 10/06/18 23:35 98/60 L 91 10/06/18 19:23 96 10/06/18 15:38 127/74 96 10/06/18 14:03 111/69 97 10/06/18 13:35 121/75 98 10/06/18 12:22 104/59 L 97 10/06/18 11:33 100/59 L 96 10/06/18 11:15 99/58 L 58 L 10/06/18 10:55 95 10/06/18 10:50 94 10/06/18 10:46 97 10/06/18 10:45 96 10/06/18 10:42 92 10/06/18 10:41 94 10/06/18 10:40 95 10/06/18 10:35 95 10/06/18 10:32 98 10/06/18 10:30 96 10/06/18 10:26 98 10/06/18 10:25 106/43 L 97 Pain Intensity Left Knee: Pain Intensity: 0 Notes Mental Status: alert / awake / arousable and participated in evaluation Patient Amnestic to Procedure: Yes Nausea / Vomiting: adequately controlled Pain: adequately controlled Airway Patency, RR, SpO2: stable & adequate BP & HR: stable & adequate Hydration State: stable & adequate Neuraxial Anesthesia: was administered and sensory block resolved Anesthetic Complications: no major complications apparent and Pt Satisfied with anesthetic care
--- NOTE | 2018-10-07 09:38 | Orthopedic Progress Note ---
Date of Service October 07, 2018 Assessment & Plan (1) Status post total left knee replacement: WBAT with immobilizer and walker for first 48 hrs post op PT/OT this AM DVT Prophy with Coumadin and TEDs Pain control with PO meds Ice with EZ wrap Dressing changed this AM Goal INR 1.8-2.2 Biweekly INR checks starting Thursday In-home PT with [employer] for first 2 wks post op F/u at [facility] in 2 weeks. Subjective Patient is day 1 s/p Left total knee arthroplasty. Doing well. Sitting in bedside chair eating breakfast. Denies CP, SOB, Nausea, vomiting, fever, chills, sweats or lethargy. States that he is ready to go home after he does PT this AM. Review of Systems Review of Systems: All systems reviewed & are unremarkable except as noted in HPI & below Physical Exam Physical Exam: Left Knee: ROM 0-90 without difficulty. Able to fire quad and perform SLRT. Calf soft and supple. Dressing removed; buster intact without drainage. Able to depict light sensation to touch around incision site. NV intact in Left LE. Results & Data Vital Signs (Past 12 Hours) Vital Signs Temp Pulse Resp BP BP Pulse Ox 10/07/18 07:45 36.3 C L 54 L 16 99/58 L 92 10/07/18 07:00 36.3 C L 54 L 16 99/58 L 92 10/07/18 04:05 36.4 C L 53 L 16 93/51 L 94 10/06/18 23:35 36.5 C 52 L 18 98/60 L 91 Laboratory Results 10/07/18 10/07/18 10/07/18 Range/Units 08:15 07:09 07:09 WBC (4.8-10.8) K/uL RBC (4.7-6.1) M/uL Hgb (14.0-18.0) g/dL Hct (42-52) % MCV (80-100) fL MCH (25-34) pg MCHC (32-36) g/dL RDW Std Deviation (36.4-46.3) fL RDW Coeff of Naye (11.5-14.5) % Plt Count (130-400) K/uL MPV (7.4-10.4) fL PT 11.5 (9.0-12.0) Seconds INR 1.1 (0.9-1.1) Sodium 141 (136-145) mmol/L Potassium 4.2 (3.5-5.1) mmol/L Chloride 109 H (98-107) mmol/L Carbon Dioxide 26 (21-32) mmol/L Anion Gap 6.0 (3-11) BUN 20 H (7-18) mg/dl Creatinine 0.80 (0.6-1.4) mg/dl Est Cr Clr Drug Dosing 84.9 ml/min Est GFR ( Amer) 99.2 Est GFR (Non-Af Amer) 85.6 BUN/Creatinine Ratio 25.3 H (10-20) Glucose 116 H (70-99) mg/dl POC Glucose 120 H (70-99) Calcium 8.7 (8.5-10.1) mg/dl 10/07/18 10/06/18 10/06/18 Range/Units 07:09 21:48 17:21 WBC 10.83 H (4.8-10.8) K/uL RBC 4.12 L (4.7-6.1) M/uL Hgb 12.4 L (14.0-18.0) g/dL Hct 37.2 L (42-52) % MCV 90.3 (80-100) fL MCH 30.1 (25-34) pg MCHC 33.3 (32-36) g/dL RDW Std Deviation 41.7 (36.4-46.3) fL RDW Coeff of Naye 12.7 (11.5-14.5) % Plt Count 147 (130-400) K/uL MPV 10.4 (7.4-10.4) fL PT (9.0-12.0) Seconds INR (0.9-1.1) Sodium (136-145) mmol/L Potassium (3.5-5.1) mmol/L Chloride (98-107) mmol/L Carbon Dioxide (21-32) mmol/L Anion Gap (3-11) BUN (7-18) mg/dl Creatinine (0.6-1.4) mg/dl Est Cr Clr Drug Dosing ml/min Est GFR ( Amer) Est GFR (Non-Af Amer) BUN/Creatinine Ratio (10-20) Glucose (70-99) mg/dl POC Glucose 147 H 125 H (70-99) Calcium (8.5-10.1) mg/dl 10/06/18 10/06/18 Range/Units 12:23 10:49 WBC (4.8-10.8) K/uL RBC (4.7-6.1) M/uL Hgb (14.0-18.0) g/dL Hct (42-52) % MCV (80-100) fL MCH (25-34) pg MCHC (32-36) g/dL RDW Std Deviation (36.4-46.3) fL RDW Coeff of Naye (11.5-14.5) % Plt Count (130-400) K/uL MPV (7.4-10.4) fL PT (9.0-12.0) Seconds INR (0.9-1.1) Sodium (136-145) mmol/L Potassium (3.5-5.1) mmol/L Chloride (98-107) mmol/L Carbon Dioxide (21-32) mmol/L Anion Gap (3-11) BUN (7-18) mg/dl Creatinine (0.6-1.4) mg/dl Est Cr Clr Drug Dosing ml/min Est GFR ( Amer) Est GFR (Non-Af Amer) BUN/Creatinine Ratio (10-20) Glucose (70-99) mg/dl POC Glucose 112 H 106 H (70-99) Calcium (8.5-10.1) mg/dl
[2018-10-07] MEDS ORDERED: WARFARIN SOD 5 MG TAB PO ONE (16:00)
== END 2018-10-07 12:20 | disposition home health service (06) | DRG 470 ==
LOC: ASU 05:53 → 3E 10:30

== ENCOUNTER 2020-11-07 06:11 | Observation (INO) ==
--- NOTE | 2020-10-12 08:52 | PAT Medication Instructions ---
Medication Instructions Date of Service October 12, 2020 Home Medications Medication Instructions Recorded atorvastatin 40 mg tablet 40 mg PO DAILY #90 tab 03/28/20 gabapentin 300 mg capsule 300 mg PO QAM #90 cap 05/15/20 ascorbic acid (vitamin C) 250 mg tablet (Vitamin C) 250 mg PO QAM cholecalciferol (vitamin D3) 125 mcg (5,000 unit) tablet (Vitamin D3) 5,000 unit PO QAM atorvastatin 40 mg tablet 40 mg PO DAILY gabapentin 300 mg capsule 300 mg PO QAM omega 9-bof-jyo-fish oil 1,000 mg (120 mg-180 mg) capsule (Fish Oil) 1 cap PO QAM acetaminophen 650 mg tablet 650 mg PO Q8H PRN elderberry fruit 200 mg capsule 200 mg PO UD PRN STOP taking 2 weeks before surgery (or as soon as possible if surgery is within 2 weeks) omega 4-aja-lfj-fish oil 1,000 mg (120 mg-180 mg) capsule (Fish Oil) 1 cap PO QAM elderberry fruit 200 mg capsule 200 mg PO UD PRN DO NOT take the morning of surgery ascorbic acid (vitamin C) 250 mg tablet (Vitamin C) 250 mg PO QAM cholecalciferol (vitamin D3) 125 mcg (5,000 unit) tablet (Vitamin D3) 5,000 unit PO QAM Take morning of surgery With a small sip of water, OTHERWISE NOTHING TO EAT OR DRINK AFTER MIDNIGHT: atorvastatin 40 mg tablet 40 mg PO DAILY gabapentin 300 mg capsule 300 mg PO QAM acetaminophen 650 mg tablet 650 mg PO Q8H PRN (okay to take up to 4 hours prior to surgery if needed) Take evening before surgery acetaminophen 650 mg tablet 650 mg PO Q8H PRN (if needed) Other Notes If you have any questions please call us at [phone] or [phone] or [phone] or [phone]
--- NOTE | 2020-10-15 09:25 | Anesthesiology Consultation ---
Date of Service October 15, 2020 Assessment & Plan (1) Encounter for pre-operative examination: - PCP office visit (10/03/20): "patient undergoing a right knee replacement, who moderately complex orthopedic procedure in a patient with moderate risk and adv anced age. Recommendations.. prior to surgery recommend evaluation by Cardiology.. The patient is history of dyspnea on exertion, chronic dyspnea, PVCs mitral regurg and mitral valve flow prolapse.. His symptoms have been maximally treated in the past and does not seem like his symptoms have changed since he was last seen on appointment. Additional testing may be warranted due to aging condition.. bronchiectasis with new right lower lobe lung mass with chronic shortness of breath. Will forward clinical task to Pulmonary to review may need preoperative evaluation by Pulmonary. Scheduled for CT scan in November create VS Fidelia reviewed at the Oncology tumor Board.. Type 2 diabetes no additional concerns testing or medications at this time." > Patient scheduled to see cardiology for preop evaluation appointment prior to surgery. Pulmonary preop risk assessment provided per 10/04/20 note. - Pulmonary note (10/04/20): "He is a low risk for complications from a pulmonary perspective. No concerns for proceeding with surgery." - COVID screening: Per assessment on 10/15: Travel screen negative, no known COVID-19 positive contacts or current COVID-19 related symptoms. Surgeon arranging preop COVID testing (scheduled 11/02). Awaiting results. - Check BSG AM DOS - S/P Left TKA (10/06/18): SAB at L4-L5 (x1 attempt) + PNB at [facility] Chart Review Chart Review: Acceptable Risk for Surgery (pending surgeon-ordered cardiology clearance) and Patient seen in Pre Admission Testing Teaching & Discussion Pre-Anesthesia Teaching/Discussion Notes: Instructed NPO after midnight before surgery,except medications with 15 cc of water. Medication instructions provided according to the PAT guidelines. History Surgery Operation Date: 11/07/20 08:50 Proposed Procedures p Right Total Knee Arthroplasty - Chad Chilel MD Height/Weight Height: 5 ft 10 in Weight: 78.9 kg Allergies Allergy/AdvReac Type Severity Reaction Status Date / Time metformin AdvReac Intermediate Stomach Verified 10/12/20 08:52 ulcers alendronate sodium AdvReac Mild GI upset Verified 10/12/20 08:52 [From Fosamax] omeprazole AdvReac Mild Nausea Verified 10/12/20 08:52 oxycodone AdvReac Mild Vomiting Verified 10/12/20 08:27 pantoprazole AdvReac Mild Nausea Verified 10/12/20 08:52 Medications Home Medications Medication Instructions Recorded Confirmed Last Taken ascorbic acid (vitamin C) 250 mg 250 mg PO QAM 09/07/18 10/12/20 10/05/18 05:00 tablet (Vitamin C) cholecalciferol (vitamin D3) 125 5,000 unit PO QAM 09/07/18 10/12/20 10/05/18 05:00 mcg (5,000 unit) tablet (Vitamin D3) atorvastatin 40 mg tablet 40 mg PO DAILY #90 tab 03/28/20 10/12/20 Unknown gabapentin 300 mg capsule 300 mg PO QAM #90 cap 05/15/20 10/12/20 Unknown omega 9-umk-zje-fish oil 1,000 mg 1 cap PO QAM cap 10/03/20 10/12/20 Unknown (120 mg-180 mg) capsule (Fish Oil) acetaminophen 650 mg tablet 650 mg PO Q8H PRN 10/12/20 10/12/20 Unknown elderberry fruit 200 mg capsule 200 mg PO UD PRN 10/12/20 10/12/20 Unknown Past Medical History Medical History Chronic osteoarthritis History of anemia Possible remote 30+ years ago s/p cardiac cath complications/bleeding History of duodenal ulcer Hyperlipidemia Left bundle-branch block Chronic, follows with Dr. Michael Mitral valve prolapse MVP with mild to moderate MR per 05/15/17 echo Osteoporosis Peripheral neuropathy Premature ventricular contractions Solitary pulmonary nodule Chronic, under surveillance Type 2 diabetes mellitus Diet controlled Exercise / Class Metabolic Activity III < 4 Walking/Shop/Light housework (one FS (no CP, no SOB)) Past Family History Family History Father Diabetes Heart disease Myocardial infarction Family history of diabetes mellitus Mother Stroke syndrome Brother Diabetes Heart disease Lung cancer Family history of diabetes mellitus Sister Family history of diabetes mellitus Other No family history of adverse response to anesthesia Denies family history of Ovarian cancer Prostate cancer Breast cancer Colorectal cancer Past Surgical History Surgical History H/O umbilical hernia repair History of cardiac cath Remote 6+ years ago x2 > no stents History of colonoscopy History of esophagogastroduodenoscopy (EGD) History of knee replacement Left TKA (10/06/18): SAB at L4-L5 (x1 attempt) + PNB at [facility] History of left hip replacement History of tooth extraction Hx of breast surgery Lumpectomies (Lx2, Rx1) Hx of cataract extraction R/L Past Anesthesia History No Hx of Anesthesia Complications and No Family Hx of Anesthesia Complications History of PONV No Hx of PONV and No Hx of Motion Sickness Social History Smoking Status: Former smoker tobacco type: cigarettes Do You Dip or Chew Tobacco: No Smoking End Date: Quit 1960s Hx Alcohol Use: No Hx Substance Use: No Review of Systems Patient denies chest pain, shortness of breath, fever, chills, cough, wheezing, palpitations. Physical Exam Vital Signs VITALS BP 109/71 P 58 TEMP WNL SP02 97%RA RESP 16 PHYSICAL Mildly decreased cervical extension range of motion. Full TMJ range of motion. TMD 3 finger breaths Mallampati Score 1 Dentition: full dentures upper/lower (edentulous) Lungs: mild lower lung base crackles Cardiac: regular rate and rhythm, no murmurs noted Spine: normal Carotid arteries: negative bruit Extremities: no edema Lab Results Anesthesia Preop Results Results Anesthesia Widget: WBC 6.13 K/uL (4.8-10.8) 10/03/20 Hgb 13.7 g/dL (14.0-18.0) L 10/03/20 Hct 41.5 % (42-52) L 10/03/20 Plt 178 K/uL (130-400) 10/03/20 Na 139 mmol/L (136-145) 10/03/20 K 4.1 mmol/L (3.5-5.1) 10/03/20 Cl 109 mmol/L (98-107) H 10/03/20 CO2 28 mmol/L (21-32) 10/03/20 BUN 22 mg/dl (7-18) H 10/03/20 Creat 0.64 mg/dl (0.6-1.4) 10/03/20 Glucose Level 91 mg/dl (70-99) 10/03/20 PT 10.7 Seconds (9.0-12.0) 10/15/20 PTT 25.8 Seconds (21.0-31.0) 10/15/20 INR 1.1 (0.9-1.1) 10/15/20 HA1c 5.9 % (4.5-5.6) H 10/03/20 Urine Color Yellow 10/15/20 Urine Appearance Clear (Clear) 10/15/20 Urine pH 7.0 (4.5-7.5) 10/15/20 Urine Specific [place] 1.023 (1.000-1.030) 10/15/20 Urine Protein Negative (Negative) 10/15/20 Urine Glucose (UA) Negative (Negative) 10/15/20 Urine Ketones Negative (Negative) 10/15/20 Urine Blood Negative (Negative) 10/15/20 Urine Nitrite Negative (Negative) 10/15/20 Urine Bilirubin Negative (Negative) 10/15/20 Urine Urobilinogen Negative (Negative) 10/15/20 Urine Leukocyte Esterase Negative (Negative) 10/15/20 Blood Type AB Positive 10/15/20 Antibody Screen NEGATIVE 10/15/20 Testing Electrocardiogram Date: 10/15/20 SB with first degree AVB at 57bpm. LBBB (chronic). Echocardiogram Date: 05/05/17 EF: 50-55% Normal left ventricular size with low-normal systolic function No regional wall motion abnormalities Septal motion consistent with bundle-branch block Mild concentric left ventricular hypertrophy Type I diastolic dysfunction Mildly dilated right ventricle with normal systolic function Mitral valve prolapse with [id number] regurgitation Normal estimated right ventricular systolic pressure; 27 mmHg Compared to prior study on 05/05/14, there is now less ventricular ectopy. Other Testing Chest CT (04/10/20): Very slowly growing 41 x 31 x 21 mm nodular opacity within the right lower lobe. The slow growth favors a benign lesion. No evidence of pathologic adenopathy. Cholelithiasis and bilateral nephrolithiasis
--- NOTE | 2020-10-29 16:09 | History & Physical Report ---
Date of Service October 29, 2020 Assessment & Plan (1) Right knee DJD: Plan: Postoperative prescriptions for hydrocodone and Coumadin will be provided at discharge from the hospital. Anticipate discharge to home with home health services. Preoperative lab work, EKG, and chest x-ray have been ordered. He will see PAT for an interview. He has already seen his PCP for medical clearance. He has an upcoming appointment with cardiology. He already has a walker and cane from his previous surgeries. The patient is aware of the COVID- 19 risks associated with surgery. He is currently asymptomatic of any COVID-19 symptoms. He will obtain COVID nasal swab testing prior to surgery. PDMP was checked and there are no concerning findings. History of Present Illness Chief Complaint: Right knee pain Primary Care Provider: NO PCP This 80-year-old male presents for his preoperative history and physical. He is scheduled to undergo a right knee total knee arthroplasty on 11/07/2020. The patient has had a history of right knee pain intermittently for the last several years. It has become worse since January of 2020. Pain is worse with activity. Worse with weightbearing. He has had some buckling from the right knee, which has caused him to nearly fall. He denies any numbness or tingling. Pain is primarily anterior and medial. No recent trauma. He has a history of left total knee arthroplasty and has done well with that. He elects to proceed with the same on the right. Preoperative imaging has been obtained. Allergies Allergy/AdvReac Type Severity Reaction Status Date / Time metformin AdvReac Intermediate Stomach Verified 10/19/20 10:39 ulcers alendronate sodium AdvReac Mild GI upset Verified 10/19/20 10:39 [From Fosamax] omeprazole AdvReac Mild Nausea Verified 10/19/20 10:39 oxycodone AdvReac Mild Vomiting Verified 10/19/20 10:39 pantoprazole AdvReac Mild Nausea Verified 10/19/20 10:39 Home Medications Medication Instructions Recorded Confirmed Type ascorbic acid (vitamin C) 250 mg 250 mg PO QAM 09/07/18 10/19/20 History tablet (Vitamin C) cholecalciferol (vitamin D3) 125 5,000 unit PO QAM 09/07/18 10/19/20 History mcg (5,000 unit) tablet (Vitamin D3) atorvastatin 40 mg tablet 40 mg PO DAILY #90 tab 03/28/20 10/19/20 Rx gabapentin 300 mg capsule 300 mg PO QAM #90 cap 05/15/20 10/19/20 Rx omega 4-qnw-bxd-fish oil 1,000 mg 1 cap PO QAM cap 10/03/20 10/19/20 History (120 mg-180 mg) capsule (Fish Oil) acetaminophen 650 mg tablet 650 mg PO Q8H PRN 10/12/20 10/19/20 History elderberry fruit 200 mg capsule 200 mg PO UD PRN 10/12/20 10/19/20 History Past Med/Surg History Medical History Chronic osteoarthritis History of anemia Possible remote 30+ years ago s/p cardiac cath complications/bleeding History of duodenal ulcer Hyperlipidemia Left bundle-branch block Chronic, follows with Dr. Michael Mitral valve prolapse MVP with mild to moderate MR per 05/15/17 echo Osteoporosis Peripheral neuropathy Premature ventricular contractions Solitary pulmonary nodule Chronic, under surveillance Type 2 diabetes mellitus Diet controlled Surgical History H/O umbilical hernia repair History of cardiac cath Remote 6+ years ago x2 > no stents History of colonoscopy History of esophagogastroduodenoscopy (EGD) History of knee replacement Left TKA (10/06/18): SAB at L4-L5 (x1 attempt) + PNB at [facility] History of left hip replacement History of tooth extraction Hx of breast surgery Lumpectomies (Lx2, Rx1) Hx of cataract extraction R/L Family History Father Diabetes Heart disease Myocardial infarction Family history of diabetes mellitus Mother Stroke syndrome Brother Diabetes Heart disease Lung cancer Family history of diabetes mellitus Sister Family history of diabetes mellitus Other No family history of adverse response to anesthesia Denies family history of Ovarian cancer Prostate cancer Breast cancer Colorectal cancer Social History Smoking Status: Former smoker Age Started Using Tobacco: 18; Age Quit Using Tobacco: 52; packs per day: 1; Years Smoked: 34; Second Hand Exposure: No; Hx Alcohol Use: No Hx Substance Use: No Preferred Language: Estonian Communication Ability: Effective Visual Impairment: Limited Hearing Ability: Use of Hearing Aid 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 Required: No Beliefs That Will Affect Care: None marital status: / Current Living Situation: Alone current occupational status: retired How many Children do You have: 1 Feels Safe at Home: Yes Childhood Exposure to Second-Hand Smoke: No caffeine: Yes Dental Care, Regularly: No Physical Activity Frequency: Daily Physical Activity Frequency Comment: walks Seatbelt Use: always Sunscreen Use: No Assistive Devices: Denture - Upper, Denture - Lower and Glasses Review of Systems Review of Systems: All systems reviewed & are unremarkable except as noted in HPI & below A total of 10 systems were reviewed. Physical Exam Physical Exam: Vitals: Height 178 cm, weight 82 kilograms, BMI 25.9, temperature 36.4, BP 120/78, O2 sat 96% on room air. Pulse is 82. General: Well-developed, well-nourished, elderly white male in no acute distress. Sitting in a chair. Alert and oriented. Skin: Warm and dry with fair turgor. No rashes or lesions. No ecchymosis or erythema. HEENT: Normocephalic, atraumatic. Eyes: PERRLA, EOMI. Nares and oropharynx exams deferred due to COVID precautions. Heart: RRR, soft systolic ejection murmur noted. No gallops or rubs. Lungs: Clear to auscultation bilaterally. No crackles, rhonchi or wheezing. Good air movement. Abdomen: Bowel sounds present x4. Soft, nontender. No organomegaly. No masses. Musculoskeletal: Right knee evaluation reveals obvious arthritic changes. No intraarticular effusion. He has focal discomfort with palpation over the medial joint line. No lateral joint line discomfort today. There is peripatellar discomfort with active motion of the knee. Stable collateral ligaments. No defect in the patellar tendon or quadriceps tendon. He lacks about 5 degrees of terminal extension on the right. Flexion to just over 90 degrees. Palpable crepitus with motion. Ambulates with a slightly antalgic gait. Neurologic: Gross sensation is intact across the lower extremities by soft touch. Peripheral pulses are 2+. Results & Data Results & Data ([facility]) Diagnostic Findings Radiographic imaging previously obtained shows end-stage DJD of the patellofemoral and medial compartments. Periarticular osteophytes, subchondral sclerosis, and joint space narrowing are all evident. Code Status & VTE Plan VTE Prophylaxis Plan VTE Prophylaxis will be ordered: Yes
[~2020-11-07 06:11] MED LIST changes: -ATOR-54 PO; -GABA-1218 PO; +LR 500ML BOLUS, THEN 15ML/HR IV SCH; +LR 60ML/HR IV SCH; -MULTTAB58 PO; +ROPIVACAINE 0.5% HCL/PF 150 MG, BUPIVACAINE 0.75% MPF 20 ML, EPINEPHrine 0.15 MG, Ketor... INFIL SCH; +TRANEXAMIC ACID 1,000 MG **IV Pre-op IV SCH; +ceFAZolin 2000MG 2,000 MG/15 ML SYR IV SCH
--- NOTE | 2020-11-07 06:19 | History & Physical Bridge Note ---
Date of Service November 07, 2020 History & Physical Bridge Note I have examined the patient, reviewed the History & Physical and in the interval since the performance of the History & Physical I have noted the following changes of clinical significance:consent obtained/site verified/covid screen negative. no changes noted
[2020-11-07] MEDS ORDERED: ROPIVACAINE 0.5% 5 MG/ML 30 ML VIAL ONE (06:34)
[2020-11-07] MEDS ORDERED: BUPIVACAINE 0.5 % 5 MG/1 ML PF 10ML VIAL ONE (06:34)
[2020-11-07] MEDS ORDERED: EPINEPHrine INJ 1 MG/ML AMP ONE (06:34)
[2020-11-07] MEDS ORDERED: HYDROmorphone INJ 1 MG/ML SYRINGE IV PRN (07:22)
[2020-11-07] MEDS ORDERED: fentaNYL citrate 100 MCG/2 ML VIAL IV PRN (07:22)
[2020-11-07] MEDS ORDERED: ONDANSETRON INJ 2 MG/ML 2 ML VIAL IV PRN ×2 (07:22→12:16)
[2020-11-07] MEDS ORDERED: LABETALOL HCL IV 5 MG/ML 20ML IV PRN (07:22)
[2020-11-07] MEDS ORDERED: PHENYLEPHRINE 100MCG/ML 5ML SYR IV PRN (07:22)
[2020-11-07] MEDS ORDERED: ePHEDrine sulfate 50 MG/ML AMP IV PRN (07:22)
[2020-11-07] MEDS ORDERED: ATROPINE SULFATE 0.1 MG/ML 10ML SYR IV PRN (07:22)
[2020-11-07] MEDS ORDERED: LIDOCAINE 2% 2 ML VIAL/AMP(20MG/ML) INFIL ONE ×2 (08:16)
[2020-11-07] MEDS ORDERED: MIDAZOLAM HCL 1 MG/ML 2ML VIAL ONE (08:16)
[2020-11-07] MEDS ORDERED: PROPOFOL IV EMULSION 10 MG/ML 20 ML VIAL IV ONE ×3 (08:16→10:59)
[2020-11-07] MEDS ORDERED: fentaNYL citrate 100 MCG/2 ML VIAL ONE (08:16)
--- NOTE | 2020-11-07 09:08 | Operative Report ---
Post Operative Report Pre & Post Diagnosis Operation Date: 11/07/20 08:50 <No data on this case meets the specified criteria> I identified the patient and participated in the time-out.: Yes Procedure Operation Date: 11/07/20 08:50 <No data on this case meets the specified criteria> Surgeon Tita Chavez MD School Counselor Marga Madison MD, I attest to the content of the Intraoperative Record and any orders documented therein. Any exceptions are noted below.
[2020-11-07] MEDS ORDERED: ORTHO JOINT ANESTHETIC ONE (09:10)
--- NOTE | 2020-11-07 09:10 | Operative Report ---
Post Operative Report Pre & Post Diagnosis Operation Date: 11/07/20 08:50 <No data on this case meets the specified criteria> I identified the patient and participated in the time-out.: Yes Procedure Operation Date: 11/07/20 08:50 <No data on this case meets the specified criteria> Surgeon Nighat Madison MD Serials Librarian Marga Madison MD, Mariely Heathterry Estimated Blood Loss 75 Findings Consistent with Post-Op Diagnosis see Dr. Chilel note Specimens see Dr. Chilel note Description of Procedure see Dr. Chilel note I attest to the content of the Intraoperative Record and any orders documented therein. Any exceptions are noted below. Supervising Physician Co-Signing Physician Notes Tita Chilel MD
--- NOTE | 2020-11-07 11:05 | Post Operative Brief Note ---
Immediate Post Op Note v1 Date of Surgery November 07, 2020 Pre & Post Diagnosis Operation Date: 11/07/20 08:50 Pre-Op Diagnosis: Right Knee Degenerative Joint Disease Post-Op Diagnosis: Right Knee Degenerative Joint Disease I identified the patient and participated in the time-out.: Yes Procedure Operation Date: 11/07/20 08:50 Actual Procedures p Right Total Knee Arthroplasty(Right) - Chad Chilel MD Surgeon Chad Chilel MD Silverlight Developer Marga Madison MD, Mariely Montero Estimated Blood Loss 50 Findings Consistent with Post-Op Diagnosis
--- NOTE | 2020-11-07 11:11 | Operative Report ---
Post Operative Report Pre & Post Diagnosis Operation Date: 11/07/20 08:50 Pre-Op Diagnosis: Right Knee Degenerative Joint Disease Post-Op Diagnosis: Right Knee Degenerative Joint Disease I identified the patient and participated in the time-out.: Yes Procedure Operation Date: 11/07/20 08:50 Actual Procedures p Right Total Knee Arthroplasty(Right) - Chad Chilel MD Surgeon JEFF Chilel MD Property Analyst Marga Madison MD, Mariely Smith PA-C Estimated Blood Loss 50 Findings Consistent with Post-Op Diagnosis see operative report Specimens see operative report Drains none Complications none Disposition Accompanied Patient To Recovery: Yes Indications This 80-year-old male presented to the office with complaints of persisting right knee pain. He had tried conservative care measures without improvement. He elected to proceed with surgical intervention in hopes of improving his function. He has a history of left total knee arthroplasty and has done well with it. He desires to do the same on the right. Preoperative imaging was obtained. Description of Procedure Patient was administered a spinal anesthetic and then taken to the operating room where he was given sedation. He was prepped and draped in the usual sterile fashion. Please see Dr. Chilel's operative report for specifics of the procedure. I was present for the entire case from initial patient positioning through final wound closure. Assistance was provided in tissue retraction, hemostasis, trial implant placement, final implant placement, and final wound closure. Patient was taken to the recovery room in satisfactory condition. I attest to the content of the Intraoperative Record and any orders documented therein. Any exceptions are noted below.
--- NOTE | 2020-11-07 11:19 | Operative Report ---
Post Operative Report Pre & Post Diagnosis Operation Date: 11/07/20 08:50 Pre-Op Diagnosis: Right Knee Degenerative Joint Disease Post-Op Diagnosis: Right Knee Degenerative Joint Disease I identified the patient and participated in the time-out.: Yes Procedure Operation Date: 11/07/20 08:50 Actual Procedures p Right Total Knee Arthroplasty(Right) - Chad Chilel MD Surgeon Tita Chilel MD Cardiac Surgeon Marga Madison MD, Mariely Heathterry PA-C Estimated Blood Loss 50 Findings Consistent with Post-Op Diagnosis see Dr Chilel note Specimens no specimens Description of Procedure see Dr Chilel note I attest to the content of the Intraoperative Record and any orders documented therein. Any exceptions are noted below. Supervising Physician Co-Signing Physician Notes Chica Chilel MD
--- NOTE | 2020-11-07 11:20 | Operative Report ---
Post Operative Report Pre & Post Diagnosis Operation Date: 11/07/20 08:50 Pre-Op Diagnosis: Right Knee Degenerative Joint Disease Post-Op Diagnosis: Right Knee Degenerative Joint Disease I identified the patient and participated in the time-out.: Yes Procedure Operation Date: 11/07/20 08:50 Actual Procedures p Right Total Knee Arthroplasty(Right) - Chad Chilel MD Surgeon Nighat Madison MD Remarketing Manager Marga Madison MD, Mariely BAHENA-C Estimated Blood Loss 50 I attest to the content of the Intraoperative Record and any orders documented therein. Any exceptions are noted below. Supervising Physician Co-Signing Physician Notes Chica Chilel MD
[2020-11-07] MEDS ORDERED: VANCOMYCIN HCL 1,250 MG in SODIUM CHLORIDE 0.9% 250 ML IV ONE ×2 (11:21→11:30)
--- NOTE | 2020-11-07 11:27 | Operative Report (OR) ---
DATE OF PROCEDURE: 11/07/2020 SURGEON: Chad Chilel MD. LIVING NURSE: Nighat Madison MD. SECOND LIVING NURSE: Cristi Smith PA-C. PREOPERATIVE DIAGNOSIS: Osteoarthritis, right knee, severe patellofemoral disease. POSTOPERATIVE DIAGNOSIS: Osteoarthritis, right knee, severe patellofemoral disease. OPERATION PERFORMED: Cemented right total knee replacement. PERIOPERATIVE SITUATION: Medically cleared male with intractable knee pain. Similar procedure done on the other side years ago. Wants to proceed on this side. He understands the risks and consequences. DESCRIPTION OF PROCEDURE: The patient was appropriately identified, site verified, consent verified. Antibiotics were confirmed as being given. Right lower extremity was prepped and draped in the usual routine fashion. Tourniquet was inflated to 300 mmHg after exsanguination of limb with a rubber Esmarch bandage for a total of 50 minutes. Midline exposure utilized. Parapatellar arthrotomy performed. Synovectomy completed, osteophytes resected. Distal femur entered, cruciates resected. Tibia was subluxated, menisci resected. Distal femur resected 14 mm, proximal tibia resected 3 mm. Extension gap was excellent. Femur was sized to a 4 and appropriate cutting block applied and the anterior, posterior condylar and chamfer cuts were made. No notching occurred. The flexion gap was excellent. The box cut was then made, and the size 4 narrow fit well. The tibia was then broached and reamed to a size 4 and once this was done, the 10 spacer fit well and the patella tracked well. The patella was resected leaving 15 mm and a 43 trial placed after holes were drilled and it tracked well. Orthomix was injected in all about the knee. The trial implants were then removed. The wound was irrigated with Betadine Pulsavac, the permanent cemented in position -- tibia, femur, and patella in that order. At 12 minutes, the tourniquet was deflated. Minor bleeding points controlled with electrocautery. There was minimal bleeding roughly 50 mL by the end of the case. Once everything was all taken care of, there was no major cement to remove, the trial spacer was removed. The wound irrigated one final time and the permanent liner seated. The knee reduced and closed with #2 Vicryl, 2-0 Vicryl and stainless steel clips. Appropriate dressing applied. The patient was transferred to recovery room in satisfactory condition, having tolerated the procedure well. EBL again was roughly 50 mL. Pathology pending on bone. SUMMARY OF IMPLANTS: Size 4 narrow right femur, size 4 mobile bearing tray, size 41 patella, size 4 x 10 mm posterior cruciate substituting insert, 2 bags of Palacos G cement. DVT prophylaxis per protocol. Job ID: [id number] MTDD
--- NOTE | 2020-11-07 11:37 | Anesthesiology Progress Note ---
Date of Service November 07, 2020 Anesthesia Post Procedure Vital Signs Vital Signs: Temp Pulse Pulse Resp BP BP Pulse Ox 11/07/20 11:30 72 16 98/57 L 95 11/07/20 11:20 70 12 93/56 L 99 11/07/20 11:10 36.1 C L 82 12 87/54 L 99 11/07/20 06:57 36.7 C 69 20 119/75 93 Transfer of Care Handoff Completed per policy Notes Mental Status: alert / awake / arousable Patient Amnestic to Procedure: Yes Nausea / Vomiting: adequately controlled Pain: adequately controlled Airway Patency, RR, SpO2: stable & adequate BP & HR: stable & adequate Hydration State: stable & adequate Neuraxial Anesthesia: was administered and sensory block is resolving Anesthetic Complications: no major complications apparent and Pt Satisfied with anesthetic care
--- NOTE | 2020-11-07 11:49 | XRay Report ---
XR knee RT 1 or 2V routine CLINICAL HISTORY: S/P R TKA COMPARISON: Right knee radiographs June 25, 2020. FINDINGS: Alignment of the total right knee arthroplasty is anatomic. No periprosthetic fracture or unexpected radiopaque foreign body. There are skin buster. IMPRESSION: Expected findings following total right knee arthroplasty. ACT 112: Negative or not required by law. Electronically signed by: Gasper Willoughby M.D. 11/07/2020 11:48 AM
--- NOTE | 2020-11-07 11:54 | Progress Notes ---
DATE OF SERVICE: 11/07/2020 SUBJECTIVE: Postop check status post right total knee replacement. The patient is resting comfortably in the recovery room. Denies any chest pain, shortness of breath, fever, chills, nausea, vomiting or headache. OBJECTIVE: VITAL SIGNS: Stable. He is afebrile. Neurovascular check is limited by his spinal. Wound dressing clean, dry and intact. Postoperative x-rays, AP and lateral, looked excellent. ASSESSMENT: Doing well status post right total knee replacement. Continue with postoperative care p athway. Follow up for potential discharge tomorrow. Job ID: [id number]
--- NOTE | 2020-11-07 12:07 | Discharge Summary (DS) ---
DATE OF ADMISSION: 11/07/2020 DATE OF DISCHARGE POTENTIALLY: 11/08/2020 CHIEF COMPLAINT: Right knee pain. HISTORY OF PRESENT ILLNESS: The patient is admitted for elective right total knee replacement. Hospital course to this point in time has been uneventful. Postop x-rays look excellent. ALLERGIES: METFORMIN, ALENDRONATE, OMEPRAZOLE, OXYCODONE .. HOME MEDICATIONS: Include vitamin C, vitamin D, atorvastatin, gabapentin, [place] vitamins, acetaminophen, elderberry. PAST MEDICAL HISTORY: Remarkable for chronic osteoarthritis, history of anemia, history of duodenal ulcer, hyperlipidemia, left bundle branch block, mitral valve prolapse, osteoporosis, peripheral neuropathy, premature ventricular contractions, solitary pulmonary nodule - chronic surveillance on that, type 2 diabetes. PAST SURGICAL HISTORY: Remarkable for hernia repair, colonoscopies, EGDs, total knee replacement and total hip replacement - both on the left, tooth extraction, breast surgery, lumpectomies, cataract extraction. FAMILY HISTORY: Remarkable for diabetes, heart disease, lung cancer. SOCIAL HISTORY: Reveals that he has a family. He is a . He lives alone. Has a son and a daughter in the area. REVIEW OF SYSTEMS: Noncontributory. Postoperative x-rays look excellent. ASSESSMENT: Doing well status post right total knee replacement. Continue with care pathway. Potential discharge tomorrow. Job ID: [id number] [facility]
[2020-11-07] MEDS ORDERED: MAGNESIUM HYDROXIDE SUSP 30 ML UDC PO PRN (12:16)
[2020-11-07] MEDS ORDERED: NALOXONE HCL 0.4 MG/1 ML VIAL/CARP IV PRN (12:16)
[2020-11-07] MEDS ORDERED: PHARMACY GLYCEMIC MGMT CONSULT PRN (12:16)
[2020-11-07] MEDS ORDERED: diphenhydrAMINE 50 MG/ML VIAL IV PRN (12:16)
[2020-11-07] MEDS ORDERED: ALUMINUM/MAGNESIUM SUSP 30 ML UDC PO PRN (12:16)
[2020-11-07] MEDS ORDERED: HYDROmorphone INJ 0.5 MG/0.5 ML SYR IV PRN (12:16)
[2020-11-07] MEDS ORDERED: METOCLOPRAMIDE HCL INJ 5 MG/ML 2 ML VIAL IV PRN (12:16)
[2020-11-07] MEDS ORDERED: HYDROCODONE/ACETAMOPHEN 5/325MG TAB PO PRN (12:16)
[2020-11-07] MEDS ORDERED: SODIUM CHLORIDE 0.9% 1000ML 1,000 ML IV SCH (12:16)
[2020-11-07] MEDS ORDERED: bisacodyL 10 MG SUPP PR PRN (12:16)
[2020-11-07] MEDS ORDERED: TAMSULOSIN HCL 0.4 MG CAP PO PRN (12:16)
[2020-11-07] MEDS: KETOROLAC TROMETHAMINE 15 MG/ML VIAL IV SCH ×2 (13:30→17:25)
[2020-11-07] MEDS: ACETAMINOPHEN 500 MG TAB PO SCH ×3 (13:31→22:40)
--- NOTE | 2020-11-07 13:40 | Pharmacy Report ---
Glycemic Ortho Sign Off Note - Date of Service November 07, 2020 - Scope Glycemic Pharmacist consulted for glycemic control and to write orders per [facility] inpatient glycemic control protocol. - Objective Accuchecks BSG (last 24hrs):: 11/07/20 11/07/20 11/07/20 06:49 11:12 12:15 POC Glucose 111 H 108 H 130 H - Assessment * Pt is maintained with diet onlyas anoutpatient with excellent control per recent A1c * Low stress weight based insulin dosing appropriate since patient has minimal risk factors for insulin resistance (i.e. no steroids). * Appropriate to DC insulin at discharge * Goal is to maintain BSGs <200 mg/dl (ideally <150 mg/dl) to prevent post op complications - Plan For Inpatient Glycemic Control * Basal insulin * Not needed based on A1c, pre-op BSGs, and minimal risk factors for insulin resistance * Bolus insulin * Utilize low stress weight based NovoLog parameters per scale ACHS (correction factor only) * Pharmacy has entered glycemic orders and is signing off of the glycemic consult. We will no longer be making adjustments to inpatient regimen. Please feel free to re-consult if needed. Thank you.
[2020-11-07] MEDS ORDERED: DEXTROSE 50% 50 ML SYRINGE IV PRN (13:45)
[2020-11-07] MEDS ORDERED: GLUCOSE 40% GEL 15 GM TUBE PO PRN (13:45)
[2020-11-07] MEDS ORDERED: CARBOHYDRATES FOR HYPOGLYCEMIA PO PRN (13:45)
[2020-11-07] MEDS ORDERED: GLUCAGON FOR INJ 1 MG VIAL IM PRN (13:45)
[2020-11-07] MEDS ORDERED: GLUCOSE 10 TABS/TUBE PO PRN (13:45)
[2020-11-07] MEDS ORDERED: PROMETHAZINE HCL INJ 25 MG/ML 1 ML VIAL IM STA (14:32)
[2020-11-07] MEDS ORDERED: PROMETHAZINE HCL 12.5 MG/10 ML UDP PO PRN (14:35)
[2020-11-07] MEDS: ORTHO WARFARIN NOMOGRAM SCH (15:05)
[2020-11-07] MEDS ORDERED: WARFARIN SOD 5 MG TAB PO ONE (16:00)
[2020-11-07] MEDS: ceFAZolin 2000MG 2,000 MG/15 ML SYR IV SCH (17:18)
[2020-11-07] MEDS: ASCORBIC ACID 500 MG TAB PO SCH (17:18)
[2020-11-07] MEDS: FERROUS GLUCONATE 324 MG TAB PO SCH (17:19)
[2020-11-07] MEDS ORDERED: TRANEXAMIC ACID / 0.7% NACL 1,000 MG/100 ML BAG IV SCH (17:30)
[2020-11-07] MEDS: INSULIN ASPART 100 UNITS/ML 3 ML PEN SC SCH ×2 (17:46→20:18)
[2020-11-07] MEDS: DOCUSATE SODIUM 100 MG CAP PO SCH (19:59)
[2020-11-07] MEDS: SENNA 8.6 MG TAB PO SCH (19:59)
[2020-11-08] MEDS: ceFAZolin 2000MG 2,000 MG/15 ML SYR IV SCH (00:56)
[2020-11-08] MEDS: KETOROLAC TROMETHAMINE 15 MG/ML VIAL IV SCH ×2 (00:57→05:58)
[2020-11-08] MEDS: ACETAMINOPHEN 500 MG TAB PO SCH ×3 (05:58→21:10)
[2020-11-08 06:10] LABS: Hematocrit (blood only) 34.7 % (42-52); Hemoglobin 11.4 g/dL (14.0-18.0); Mean Corpuscular Hemoglobin 30.1 pg (25-34); Mean Corpuscular Hgb Conc 32.9 g/dL (32-36); Mean Corpuscular Volume 91.6 fL (80-100); Platelet Count 117 K/uL (130-400); RDW Coefficient of Variation 12.6 % (11.5-14.5); RDW Standard Deviation 42.3 fL (36.4-46.3); Red Blood Count 3.79 M/uL (4.7-6.1); White Blood Count 7.31 K/uL (4.8-10.8)
[2020-11-08 06:16] LABS: INR 1.1 (0.9-1.1); Prothrombin Time 11.4 Seconds (9.0-12.0)
[2020-11-08 06:39] LABS: BUN Creatinine Ratio 24.7 (10-20); Calcium 8.3 mg/dl (8.5-10.1); Creatinine Clr Calc Pharmacy 92.2 ml/min; Est GFR (African American) 105.8 ml/min; Est GFR (Non-African American) 91.3 ml/min; Potassium 3.9 mmol/L (3.5-5.1)
[2020-11-08] MEDS: traMADol HCL 50 MG TABLET PO PRN ×3 (08:24→21:17)
[2020-11-08] MEDS: ATORVASTATIN 40 MG TAB PO SCH (08:25)
[2020-11-08] MEDS: GABAPENTIN 300 MG CAP PO SCH (08:25)
[2020-11-08] MEDS: ASCORBIC ACID 500 MG TAB PO SCH ×2 (08:25→17:24)
[2020-11-08] MEDS: MULTIVITAMIN TAB PO SCH (08:25)
[2020-11-08] MEDS: DOCUSATE SODIUM 100 MG CAP PO SCH ×2 (08:25→19:26)
[2020-11-08] MEDS: FERROUS GLUCONATE 324 MG TAB PO SCH ×2 (08:25→17:24)
[2020-11-08] MEDS: INSULIN ASPART 100 UNITS/ML 3 ML PEN SC SCH ×4 (08:27→21:11)
--- NOTE | 2020-11-08 08:41 | Progress Notes ---
DATE OF NOTE: 11/08/2020. SUBJECTIVE: Postop check status post right total knee replacement. He is doing well. He is sitting up in bed. He has no further nausea. He ate his meals well. He denies any chest pain, shortness o f breath, fever, chills, nausea, vomiting or headache. OBJECTIVE: VITAL SIGNS: Stable. He is afebrile. Neurovascular check femoral sciatic nerve is normal. LABORATORY DATA: Hematocrit stable in the mid 30s. ASSESSMENT AND PLAN: Doing well. Discharged home today after PT/OT. His preferred pain medication is tramadol. Please note this. Job ID: [id number]
--- NOTE | 2020-11-08 09:13 | Orthopedic Progress Note ---
Date of Service November 08, 2020 Assessment & Plan (1) S/P total knee arthroplasty: Plan: Patient was seen in his room this morning. Dressing was changed by me. CRISTIANO hose were applied. He will attend PT this morning. Discharge to home with home health services after PT is complete. He would like to leave before lunch. Follow-up in the office in 2 weeks as scheduled for staple removal. Prescriptions for tramadol 50 mg and Coumadin 2 mg have been sent to his pharmacy. He will receive his Coumadin dose today before departure. Continue 4 mg daily over the weekend and have his blood rechecked on Thursday. Written discharge instructions were provided. Continue using the walker when ambulating, and wear the knee immobilizer when out of bed for today and tomorrow. He may discontinue it on Thursday morning. Admission and Anticipated Discharge Date Admission Date: November 07, 2020 Subjective Patient is seen in his room this morning. Has no complaints. Denies any chest pain, shortness of breath, nausea, vomiting, or abdominal pain. He states his knee pain was controlled very well overnight. He has been out of bed and has ambulated in the hallway. He has finished his breakfast. He is anxious to be discharged. No other complaints. Review of Systems Review of Systems: Unchanged from yesterday. Physical Exam Physical Exam: General: Well-developed well-nourished, elderly male, in no acute distress. Laying in bed. Conversive. Alert and oriented. Skin: Warm and dry with good turgor. No rashes or lesions. Expected postoperative edema. No ecchymosis. Musculoskeletal: Patient has an intact dry dressing. Upon removal, there is scant dried drainage on his inner bandages. No active bleeding. [place] are intact. Wound edges are well approximated. Mild edema as stated. No erythema or ecchymosis. He is able to perform a straight leg raise. He has full terminal extension. Flexion to around 40 degrees easily. Intact motor function of the ankle and toes. Neurologic: Gross sensation is intact across the right leg by soft touch. Peripheral pulses are 2+. Results & Data ([facility]) Vital Signs (Past 12 Hours) Vital Signs Temp Pulse Resp BP Pulse Ox 11/08/20 07:00 36.4 C L 65 20 98/48 L 96 11/08/20 02:26 36.6 C 59 L 16 93/56 L 94 11/07/20 22:41 37.0 C 68 14 95/61 L 93 Laboratory Results H&H this morning are 11.4 and 34.7. WBC is normal at 7.3. INR is 1.1. PRP is unremarkable with sodium 140, potassium 3.9, chloride 109, BUN 16, creatinine 0.66. Blood sugar this morning is 114. Maximum glucose was 142 last night.
[2020-11-08] MEDS ORDERED: WARFARIN SOD 5 MG TAB PO ONE (12:48)
[2020-11-08] MEDS ORDERED: ORTHO WARFARIN NOMOGRAM SCH (14:00)
[2020-11-08] MEDS: ORTHO WARFARIN NOMOGRAM SCH (14:35)
[2020-11-08] MEDS ORDERED: SODIUM CHLORIDE 0.9% 1000ML 250 ML IV ONE (15:03)
--- NOTE | 2020-11-08 15:36 | Progress Notes ---
The patient was orthostatic when he stood up. Apparently, he received his tramadol 15-20 minutes mar or to him getting up, which has led to some orthostatic changes. As such, I do not feel appropriate for him to go home. He states he has no nausea otherwise. At this point in time, I will order a 250 mL bolus of normal saline and I will have the nursing staff try to get him up out of bed and progres sively move him over the next shift. Potentially, he will be discharged tomorrow if he does well. Ora franklin emphatically denies feeling bad. He states he has no nausea. He just got lightheaded after he got up to do his PT and he received this medication shortly before that. He denies any chest pain, shor tness of breath, etc. He is voiding, eating and drinking. I will give him a one-time bolus and obse rve from there. I do not see any other indications for other workup. Job ID: [id number]
[2020-11-08] MEDS: SENNA 8.6 MG TAB PO SCH (19:26)
[2020-11-09] MEDS: traMADol HCL 50 MG TABLET PO PRN (03:08)
[2020-11-09] MEDS: ACETAMINOPHEN 500 MG TAB PO SCH (06:21)
--- NOTE | 2020-11-09 07:02 | Progress Notes ---
SUBJECTIVE: Postop day #2 status post right total knee replacement. The patient is feeling some mor e discomfort today in his leg as the block has fully worn off from the intra-articular perioperative block. He denies any chest pain, shortness of breath, fever, chills, nausea, vomiting, or headache. OBJECTIVE: His vital signs are stable: Calves are nontender. Wound dressing clean, dry and intact. Can do a straight leg raise. Can do heel slides roughly near 0 to 40 degrees. He was able to get up and walk around the room last night. The nausea and dizziness at this point in time has gone. ASSESSMENT AND PLAN: Postoperative total knee replacement. Discharged to home today after PT/OT. A dvised him to be careful about his pain medication as he seems to be quite sensitive to that. He had a postoperative reaction to some of the anesthesia medications creating nausea and ultimately led to some of his dizziness. At this point in time, it appears to be eliminated and not related to anythi ng medially. Will plan for PT/OT today and discharge. INR is pending this morning, coumadin dose pe r that. Follow up in roughly 2 weeks. Job ID: [id number]
--- NOTE | 2020-11-09 07:17 | Discharge Summary (DS) ---
ADDENDUM The patient had reaction to medications postoperatively, anesthesia based, and caused nausea. Then had secondary orthostatic changes with his pain medication that he was given to close to getting up yesterday. It seems to be under control now. He was able to walk around the room last night. His blood pressure is now above 100, his pulse is stable in the 70s. He is afebrile and his O2 sats on room air are in the mid 90s. He looks good clinically. At this point in time, he is discharged to home after PT/OT. Coumadin dose per nomogram, which is pending today. Job ID: [id number] [id number]
[2020-11-09] MEDS: ORTHO WARFARIN NOMOGRAM SCH (07:25)
[2020-11-09 08:20] LABS: INR 2.2 (0.9-1.1); Prothrombin Time 20.7 Seconds (9.0-12.0)
[2020-11-09] MEDS: ASCORBIC ACID 500 MG TAB PO SCH (08:33)
[2020-11-09] MEDS: GABAPENTIN 300 MG CAP PO SCH (08:34)
[2020-11-09] MEDS: ATORVASTATIN 40 MG TAB PO SCH (08:34)
[2020-11-09] MEDS: MULTIVITAMIN TAB PO SCH (08:34)
[2020-11-09] MEDS: FERROUS GLUCONATE 324 MG TAB PO SCH (08:34)
[2020-11-09] MEDS: INSULIN ASPART 100 UNITS/ML 3 ML PEN SC SCH (08:39)
[2020-11-09] MEDS: DOCUSATE SODIUM 100 MG CAP PO SCH (08:40)
== END 2020-11-09 12:16 | disposition home health service (06) ==
LOC: 3E 06:11 → ASU 06:11